=== PATIENT | male | born 1930 | race Caucasian/White ===

== ENCOUNTER 2018-09-09 12:33 | Emergency (ER) | payer MEDICARE ==
[~2018-09-09] VITALS: Ht 182.9 cm; Wt 104.3 kg
[~2018-09-09 12:33] MED LIST: ACET500; ALBU.083IS IH; AMLO10 PO; ATOR40TA PO; AZIT250 PO; Adult Low Dose81 MG PO; BISA10S PR; BUDE.5 NEB; CYCL0.05OP BOTHEYES; DIPH25; DOCU100 PO; FISH1000; GAVILAX17 GM PO; GLIP10; GLIP10 PO; HYDACE5 PO; INSUASPI SC; INSULANI SC; LEVEMIR FL100 UNIT/1 SC; LEVO750 PO; LISI20 PO; METF500; METF500 PO; NITR.4SL SL; Novolog Fl100 UNIT/1 SC; OMEP20ER; RXHYDACE PO; Ultram50 MG PO
[2018-09-09 14:21] LABS: Alanine Aminotransfer (ALT/SGP 23 U/L (12-78); Albumin, Blood 3.4 g/dL (3.4-5.0); Albumin/Globulin Ratio 0.8 (0.8-1.8); Alk Phos 92 U/L (50-136); Anion Gap 7 mmol/L (6-16); Aspartate Aminotrans (AST/SGOT 13 U/L (12-37); Bilirubin, Total 0.8 mg/dL (0.1-1.0); Blood Urea Nitrogen 20 mg/dL (8-24); Bun/Creatinine Ratio 21.9 (12.0-20.0); CO2, Blood 23 mmol/L (21-32); Calcium, Blood 9.1 mg/dL (8.5-10.1); Chloride, Blood 108 mmol/L (98-108); Creatinine, Blood 0.91 mg/dL (0.60-1.20); Globulin, Blood 4.1 g/dL (2.2-4.0); Glomerular Filtration Rate >60 (60-); Glucose, Blood 138 mg/dL (70-99); Potassium, Blood 3.8 mmol/L (3.5-5.5); Sodium, Blood 138 mmol/L (136-145); Total Protein, Blood 7.5 g/dL (6.4-8.2)
[2018-09-09 14:27] LABS: BASOPHILS ABSOLUTE AUTO 0.05 K/mm3 (0.00-0.23); BASOPHILS PERCENT AUTO 1 % (0-2); EOSINOPHILS ABSOLUTE AUTO 0.13 K/mm3 (0.00-0.68); EOSINOPHILS PERCENT AUTO 2 % (0-6); Hematocrit 42.2 % (37.0-53.0); Hemoglobin 14.2 g/dL (13.5-17.5); IMMATURE GRAN ABSOLUTE AUTO 0.02 K/mm3 (0.00-0.10); IMMATURE GRAN PERCENT AUTO 0 % (0-1); LYMPHOCYTES ABSOLUTE AUTO 1.71 K/mm3 (0.84-5.20); LYMPHOCYTES PERCENT AUTO 30 % (21-46); MONOCYTES ABSOLUTE AUTO 0.66 K/mm3 (0.16-1.47); MONOCYTES PERCENT AUTO 12 % (4-13); Mean Corpuscular HGB 29.5 pg (26.0-34.0); Mean Corpuscular HGB Conc 33.6 g/dL (31.5-36.5); Mean Corpuscular Volume 88 fL (80-100); Mean Platelet Volume 9.8 fL (9.1-12.4); NEUTROPHILS ABSOLUTE AUTO 3.08 K/mm3 (1.96-9.15); NEUTROPHILS PERCENT AUTO 54 % (41-73); Platelet Count 200 K/mm3 (150-400); RDW Coefficient Variation 13.9 % (11.7-14.2); RDW Standard Deviation 44.8 fL (35.1-46.3); Red Blood Cell Count 4.81 M/mm3 (4.30-5.90); White Blood Cell Count 5.65 K/mm3 (4.00-11.30)
[2018-09-09 14:29] LABS: Prothrombin Time Results 10.6 Sec (9.7-11.5)
[2018-09-09 14:42] LABS: Source, Urine Catheter
[2018-09-09 14:54] LABS: Bilirubin, Urine Neg (Neg); Blood, Urine 1+ (Neg); Glucose Qualitative, Urine Neg (Neg); Ketones, Urine Neg (Neg); Leukocyte Esterase, Urine 3+ (Neg); Nitrite, Urine Neg (Neg); Protein, Urine Neg (Neg); Specific Gravity, Urine 1.015 (1.003-1.022); Urobilinogen, Urine NORM (Normal); pH, Urine 6.5 (5.0-8.0)
[2018-09-09 15:11] LABS: Appearance, Urine Hazy (Clear); Color, Urine Yellow (P-Yellow)
[2018-09-09 15:12] LABS: Bacteria Many /hpf; Squamous Epithelial Cells Mod /hpf (Few); White Blood Cells, Urine 25-50 /hpf (0-5)
[2018-09-09] MEDS ORDERED: CEFP200 PO (15:33)
== END 2018-09-09 16:32 | disposition home or self-care (01) ==
LOC: ER 12:33
PROVIDERS: Physician Assistant
DX: N39.0 Urinary tract infection, site not specified (principal); E11.9 Type 2 diabetes mellitus without complications; I10 Essential (primary) hypertension; E78.5 Hyperlipidemia, unspecified; I48.91 Unspecified atrial fibrillation; K21.9 Gastro-esophageal reflux disease without esophagitis; Z79.4 Long term (current) use of insulin; Z79.899 Other long term (current) drug therapy; Z87.891 Personal history of nicotine dependence; Z88.0 Allergy status to penicillin; Z88.5 Allergy status to narcotic agent
CPT/HCPCS: 36415; 51701; 70450; 71046; 80053; 81001; 85025; 85610; 85730; 87077; 87086; 87186; 93005; 93010; 99284-25

== ENCOUNTER 2018-10-07 12:37 | Inpatient (IN) | payer MEDICARE ==
[~2018-10-07] VITALS: Ht 182.9 cm; Wt 100.1 kg
[~2018-10-07 12:37] MED LIST changes: +CEFP200 PO
[2018-10-07 13:39] LABS: BASOPHILS ABSOLUTE AUTO 0.02 K/mm3 (0.00-0.23); BASOPHILS PERCENT AUTO 0 % (0-2); EOSINOPHILS ABSOLUTE AUTO 0.01 K/mm3 (0.00-0.68); EOSINOPHILS PERCENT AUTO 0 % (0-6); Hematocrit 45.5 % (37.0-53.0); Hemoglobin 15.6 g/dL (13.5-17.5); IMMATURE GRAN ABSOLUTE AUTO 0.07 K/mm3 (0.00-0.10); IMMATURE GRAN PERCENT AUTO 1 % (0-1); LYMPHOCYTES ABSOLUTE AUTO 1.16 K/mm3 (0.84-5.20); LYMPHOCYTES PERCENT AUTO 11 % (21-46); MONOCYTES ABSOLUTE AUTO 0.96 K/mm3 (0.16-1.47); MONOCYTES PERCENT AUTO 9 % (4-13); Mean Corpuscular HGB 29.6 pg (26.0-34.0); Mean Corpuscular HGB Conc 34.3 g/dL (31.5-36.5); Mean Corpuscular Volume 86 fL (80-100); NEUTROPHILS ABSOLUTE AUTO 8.61 K/mm3 (1.96-9.15); NEUTROPHILS PERCENT AUTO 80 % (41-73); Platelet Count 191 K/mm3 (150-400); RDW Coefficient Variation 13.6 % (11.7-14.2); RDW Standard Deviation 42.7 fL (35.1-46.3); Red Blood Cell Count 5.27 M/mm3 (4.30-5.90); White Blood Cell Count 10.83 K/mm3 (4.00-11.30)
[2018-10-07 13:46] LABS: Alanine Aminotransfer (ALT/SGP 22 U/L (12-78); Albumin, Blood 3.4 g/dL (3.4-5.0); Albumin/Globulin Ratio 0.7 (0.8-1.8); Alk Phos 105 U/L (50-136); Anion Gap 8 mmol/L (6-16); Aspartate Aminotrans (AST/SGOT 16 U/L (12-37); Blood Urea Nitrogen 18 mg/dL (8-24); Bun/Creatinine Ratio 20.9 (12.0-20.0); CO2, Blood 23 mmol/L (21-32); Calcium, Blood 8.7 mg/dL (8.5-10.1); Chloride, Blood 101 mmol/L (98-108); Creatinine, Blood 0.86 mg/dL (0.60-1.20); Globulin, Blood 4.8 g/dL (2.2-4.0); Glomerular Filtration Rate >60 (60-); Glucose, Blood 271 mg/dL (70-99); Potassium, Blood 3.8 mmol/L (3.5-5.5); Sodium, Blood 132 mmol/L (136-145); Total Protein, Blood 8.2 g/dL (6.4-8.2); Troponin I 0.025 ng/mL (0.000-0.040)
[2018-10-07 14:27] LABS: Source, Urine Clean Catch
[2018-10-07 14:55] LABS: Bilirubin, Urine Neg (Neg); Blood, Urine 3+ (Neg); Glucose Qualitative, Urine 4+ (Neg); Ketones, Urine Neg (Neg); Leukocyte Esterase, Urine 2+ (Neg); Nitrite, Urine Neg (Neg); Protein, Urine 2+ (Neg); Urobilinogen, Urine NORM (Normal)
[2018-10-07 15:08] LABS: Appearance, Urine Hazy (Clear); Color, Urine Pale Yellow (P-Yellow)
[2018-10-07 15:09] LABS: Bacteria Many /hpf; Red Blood Cells, Urine 0-2 /hpf (0-2); Squamous Epithelial Cells Few /hpf (Few)
[2018-10-07 16:11] LABS: Adenovirus Not Detected (NOT DETECT); Bordetella pertussis Not Detected (NOT DETECT); Chlamydophila pneumoniae Not Detected (NOT DETECT); Coronavirus 229E Not Detected (NOT DETECT); Coronavirus HKU1 Not Detected (NOT DETECT); Coronavirus NL63 Not Detected (NOT DETECT); Coronavirus OC43 Not Detected (NOT DETECT); Human Metapneumovirus Not Detected (NOT DETECT); Human Rhinovirus/Enterovirus Not Detected (NOT DETECT); Influenza A Not Detected (NOT DETECT); Influenza A/2009-H1 Not Detected (NOT DETECT); Influenza A/H1 Not Detected (NOT DETECT); Influenza A/H3 Not Detected (NOT DETECT); Influenza B Not Detected (NOT DETECT); Mycoplasma pneumoniae Not Detected (NOT DETECT); Parainfluenza Virus 1 Not Detected (NOT DETECT); Parainfluenza Virus 2 Not Detected (NOT DETECT); Parainfluenza Virus 3 Not Detected (NOT DETECT); Parainfluenza Virus 4 Not Detected (NOT DETECT); Respiratory Syncytial Virus Not Detected (NOT DETECT)
[2018-10-07] MEDS ORDERED: Coreg12.5 MG PO (16:21)
[2018-10-07] MEDS ORDERED: Plavix75 MG PO (16:22)
[2018-10-07] MEDS ORDERED: Avodart0.5 MG PO (16:23)
[2018-10-07] MEDS ORDERED: INSULANPEN SC (16:27)
[2018-10-07] MEDS ORDERED: LOSA50 PO (16:28)
[2018-10-07] MEDS ORDERED: Acidophilus La100 GM PO (16:28)
[2018-10-07] MEDS ORDERED: OMEPRAZOLE MAGN20 MG PO (16:30)
[2018-10-07] MEDS ORDERED: TAMS.4ER PO (16:30)
[2018-10-07] MEDS ORDERED: AREDS PO (16:34)
[2018-10-07] MEDS ORDERED: MULTIVITAMIN PO (16:34)
--- NOTE | 2018-10-07 18:37 | NUR ---
ADMIT- PT ARRIVED TO ROOM 353 VIA LAURO FROM ED AT 1740. PT A/O TO PERSON, PLACE, AND YEAR. PT DENIES ANY COMPLAINTS. LS CLEAR, ON 5L N/C, PT DOES NOT USE OXYGEN AT HOME. TELE AFIB AT 95 PER PCU PROGRAM/MUSIC DIRECTOR. REDNESS NOTED TO SACRAL AREA. PT PT AND SPOUSE PT IS A DNR, ADVANCE DIRECTIVE PRINTED AND PLACED IN CHART, SPOKE WITH DR CORRALES AND ORDER CHANGED. SPOUSE REPORTS PT STRAIGH CATH'S AT HOME DUE TO URINARY RETENTION, SHE IS CONCERNED BECAUSE PT HAS HAD NOW 2 UTI'S RECENTLY AND CONCERNED WITH PT STRAIGHT CATHING AND REQUESTING A GUZMÁN CATHETER BE PLACED. PT HAS A UROLOGY APPT IN [place] ON 11/23, THEY REPORT THEY ARE TRYING TO GET A SOON APPT. PT ORIENTED TO ROOM AND CALL SYSTEM, CALL LIGHT IN REACH AND BED ALARM ON.
[2018-10-07 20:07] LABS: Source, Urine Catheter
[2018-10-07 20:23] LABS: Appearance, Urine Hazy (Clear); Bilirubin, Urine Neg (Neg); Blood, Urine 3+ (Neg); Color, Urine Pale Yellow (P-Yellow); Glucose Qualitative, Urine 4+ (Neg); Ketones, Urine Neg (Neg); Leukocyte Esterase, Urine 2+ (Neg); Nitrite, Urine Pos (Neg); Protein, Urine 2+ (Neg); Specific Gravity, Urine 1.015 (1.003-1.022); Urobilinogen, Urine NORM (Normal)
[2018-10-07 20:37] LABS: Red Blood Cells, Urine 0-2 /hpf (0-2); White Blood Cells, Urine 50-100 /hpf (0-5)
[2018-10-07 20:38] LABS: Amorphous Light (0-Heavy); Bacteria Mod /hpf; Squamous Epithelial Cells Few /hpf (Few)
--- NOTE | 2018-10-08 00:01 | NUR ---
2202 PT BECOMING SLIGHTLY AGITATED AND PULLED OUT LEFT SALINE LOCK, ATTEMPTING TO CLIMB OOB, PULLING AT CATHETER/TELEMETRY AND O2. THIS NURSE CALLED VERNA LOVE WITH ORDERS RECEIVED FOR ANDRESSA VEST AND BILATERAL SOFT WRIST RESTRAINTS.
--- NOTE | 2018-10-08 02:04 | NUR ---
0155 PT MANAGED TO REMOVE BILATERAL SOFT WRIST RESTRAINTS, PULLED OFF TELEMETRY AND ATTEMPTING TO CLIMB OOB. THIS NURSE CALLED DR GILLESPIE AND ADVISED OF THE ABOVE WITH ORDERS ANDRESSA VEST AND 4 POINT SOFT RESTRAINTS AND HALDOL 5MG IM. 0200 HALDOL 5MG IM GIVEN.
--- NOTE | 2018-10-08 02:36 | NUR ---
PT VERY AGITATED AND MOVING AROUND IN BED. THIS NURSE CALLED DAUGHTER NEETA AT [phone] AND PROVIDED UPDATE, DAUGHTER INTENDS TO COME IN ADELE. PTS RESTRAINTS REAPPLIED (PT HAD REMOVED LEFT WRIST AND TELEMETRY) WHILE YELLING
--- NOTE | 2018-10-08 03:32 | NUR ---
PTS DAUGHTER NEETA AT SIDE AND PATIENT IS RESTING QUIETLY.
--- NOTE | 2018-10-08 05:51 | NUR ---
SHIFT SUMMARY: 88 Y/O MALE HAD VERY RESTLESS SHIFT WITH PATIENT ATTEMPTING CLIMB OOB, PULLING AT GUZMÁN (DARK RED INTIALLY AFTER PT PULLED ON DEVICE X 1, NOW COLOR IS CLEAR AT END OF THIS SHIFT), TAKING TELEMETRY OFF (A/FIB). PT WAS PLACED IN 4 POINT RESTRAINTS WITH ANDRESSA VEST APPLIED. PTS DAUGHTER NEETA CAME IN AT 0230 AFTER THIS NURSE CALLED HOME AND PROVIDED UPDATE (PATIENTS BEHAVIOR STILL AGITATED AT TIMES WHILE SHE HAS BEEN AT SIDE, HOWEVER; NO FURTHER ISSUES WITH ATTEMPTS TO REMOVE GUZMÁN OR TELEMETRY NOTED. PTS IV R WRIST PATENT, DENIES PAIN OR NAUSEA. PTS BED ALARM APPLIED WITH BED LOW POSITION, CALL LIGHT AT SIDE. PT WEARING O2 AT 5L/M PER NASAL CANNULA (REAPPLIED MULTIPLE TIMES AFTER PATIENT REMOVED). PT WAS GIVEN HALDOL 5MG AT 0200 FOR AGITATION WITH MINIMAL AFFECT NOTED.
--- NOTE | 2018-10-08 08:59 | NUR ---
TELE MONITOR CALLED AND REPORTED PT HR IS 130-140'S AFIB, SCHEDULED COREG GIVEN AND DR ARMENTA CALLED. IV CARDIZEM 10MG GIVEN. PT BACK TO BED AND PLACED ON BEDREST AT THIS TIME. WILL CONT TO MONITOR. PT DENIES ANY CP. PT WITH NOTED SOB.
--- NOTE | 2018-10-08 11:48 | NUR ---
Spiritual care visit conducted. Patient is sleeping when I entered patient's room. I touched patient's shoulder and said his name. Patient awoke and is startled and is unable to hear. I help patient put in his hearing aide in and help orient patient and explain who I am and the purpose for my visit. Patient calms down and explains that some would say that he is not anabaptist but patient assures me that he is a strong believer. He is just not one of those people who runs around talking about it all the time. I provide companionship and prayer and patient thanks me for it. Patient returns to resting.
[2018-10-08 12:08] LABS: BASOPHILS ABSOLUTE AUTO 0.04 K/mm3 (0.00-0.23); BASOPHILS PERCENT AUTO 0 % (0-2); EOSINOPHILS ABSOLUTE AUTO 0.02 K/mm3 (0.00-0.68); EOSINOPHILS PERCENT AUTO 0 % (0-6); Hematocrit 42.6 % (37.0-53.0); Hemoglobin 14.3 g/dL (13.5-17.5); IMMATURE GRAN ABSOLUTE AUTO 0.05 K/mm3 (0.00-0.10); IMMATURE GRAN PERCENT AUTO 1 % (0-1); LYMPHOCYTES ABSOLUTE AUTO 1.06 K/mm3 (0.84-5.20); LYMPHOCYTES PERCENT AUTO 11 % (21-46); MONOCYTES ABSOLUTE AUTO 0.89 K/mm3 (0.16-1.47); MONOCYTES PERCENT AUTO 9 % (4-13); Mean Corpuscular HGB 29.5 pg (26.0-34.0); Mean Corpuscular HGB Conc 33.6 g/dL (31.5-36.5); Mean Corpuscular Volume 88 fL (80-100); Mean Platelet Volume 9.9 fL (9.1-12.4); NEUTROPHILS ABSOLUTE AUTO 7.94 K/mm3 (1.96-9.15); NEUTROPHILS PERCENT AUTO 79 % (41-73); Platelet Count 185 K/mm3 (150-400); RDW Coefficient Variation 13.9 % (11.7-14.2); RDW Standard Deviation 44.7 fL (35.1-46.3); Red Blood Cell Count 4.84 M/mm3 (4.30-5.90)
[2018-10-08 12:23] LABS: Albumin, Blood 2.9 g/dL (3.4-5.0); Anion Gap 6 mmol/L (6-16); Blood Urea Nitrogen 17 mg/dL (8-24); CO2, Blood 24 mmol/L (21-32); Calcium, Blood 8.5 mg/dL (8.5-10.1); Chloride, Blood 105 mmol/L (98-108); Creatinine, Blood 0.89 mg/dL (0.60-1.20); Glomerular Filtration Rate >60 (60-); Glucose, Blood 241 mg/dL (70-99); Magnesium, Blood 1.9 mg/dL (1.6-2.4); Phosphorus, Blood 2.2 mg/dL (2.5-4.9); Potassium, Blood 3.8 mmol/L (3.5-5.5); Sodium, Blood 135 mmol/L (136-145)
--- NOTE | 2018-10-08 13:10 | NUR ---
DR ARMENTA NOTIFIED OF LACTIC ACID DRAW OF 2.4. PER DR ARMENTA CHANGE IVF TO LR AT 100ML/HR. WILL CONT TO MONITOR.
--- NOTE | 2018-10-08 15:00 | NUR ---
ECHO IN PROGRESS.
--- NOTE | 2018-10-08 15:39 | NUR ---
ECHOCARDIOGRAM COMPLETE
--- NOTE | 2018-10-08 17:22 | NUR ---
SHIFT SUMMARY- PT A/O TO PERSON AND FAMILY. PT DENIES ANY COMPLAINTS T/O THE SHIFT. RESTRAINTS DC'D THIS AM. LS CLEAR, ON 5L N/C, OCC NPC, SOB WITH EXERTION. PT WITH AFIB IN THE 140'S THIS AM, IV CARDIZEM GIVEN X1, HR HAS BEEN 80'S-110'S, INCREASES TO 120'S WITH EXERTION, PRN IV METOPROLOL AVAILABLE. LACTIC ACID REMAINS ELEVATED, PT STARTED ON LR AT 100ML/HR. 1 ASSIST WITH FWW UP TO RECLINER. RAMIREZ PATENT AND DRAINING. PT VERY HARD OF HEARING AND NEEDS HIS COCHLEAR IMPLANT, SPOUSE BROUGHT IN PRINT OPERATOR. PT HAS BEEN COOPERATIVE AND PLEASANT WITH CARE, SPOUSE HAS ASSISTED WITH REDIRECTING PT. NO OTHER ACUTE CHANGES THIS SHIFT.
--- NOTE | 2018-10-08 18:09 | NUR ---
Initial Visit: Pt has history of diabetes, HTN, recurrent UTIs, cardiomyopathy, BPH, intersitial lung disease, GERD, cochlear implant, here for afib and pneumonia. Pt is alert, oriented to self, family, situation, place at this time. He converses easily, very pleasant. Pt's and daughter are present, and the is going home to rest. Daughter will be staying for a short while and then will go home. She has told the staff to please call if pt gets out of control during shift coordinator. Fátima, daughter, lives just a couple blocks away from her mother and her father. Pt is explaining to me what his urologist has told him. He is explaining 3 different procedures that he may have to get to resolve his bladder issues. Fátima explains that his bladder does not empty all the way and the urine gets infected. Pt is holding his lower abd and rocking back and forth. He states he is in extreme pain in his penis and bladder area. Reviewed that the pain is likely from him attempting to pull it out last night. Pt is somewhat confabulatory and his daughter at times is making a hand sign every so often, with her index finger circling around her ear; indicating "crazy." She states that he is often confused, especially in the evenings. Updated rTacie on pt's pain level. He does not have any analgesics on his eMAR, so she is going to call the doc and get some Tylenol ordered. Asked Tracie to pass on in report to assess pt's pain often and offer medication. It may help pt rest more comfortably tonight. Will remain available, plan on follow up tomorrow to evaluate pt's night and pain relief.
--- NOTE | 2018-10-08 18:22 | NUR ---
Also recommend adding pyridium. Pt is having recurrent UTIs and urgency issues. Tracie reports that pt is usuallly fixated on draining his bladder at home, as he straight caths and feels urinary urgency.He may benefit from this shelter or can be reevaluated at his urology appointment, but it is not until late October.
--- NOTE | 2018-10-08 19:06 | NUR ---
TITLE I INSTRUCTIONAL ASSISTANT CALLED AND REPORTED PT HR IN THE 120'S, PT ASSISTED BACK INTO BED. HR NOW 110-115'S PER PCU MAT SEWER. NIGHT RN NOTIFIED.
--- NOTE | 2018-10-08 21:00 | NUR ---
PT WATCHING TV WITH LIGHTS ON, FOLLOWING SIMPLE VERBAL COMMANDS, ALERT PERSON ONLY.
--- NOTE | 2018-10-09 04:48 | NUR ---
SHIFT SUMMARY: PT RESTED COMFORTABLY ALL SHIFT WITH NO ATTEMPTS TO CLIMB OOB OR REMOVE ANY HOSPITAL EQUIPMENT (IV, TELEMETRY, GUZMÁN, O2). PT ABLE TO FOLLOW SIMPLE VERBAL COMMANDS, ALERT PERSON ONLY, COCHLEAR IMPLANTS WORN LEFT EAR. PT DENIES PAIN OR NAUSEA. PT ABLE TO REPOSITION SELF IN BED, NO AGITATION NOTED. PTS BED ALARM APPLIED, BED LOW POSITION, CALL LIGHT AT SIDE.
[2018-10-09 05:09] LABS: BASOPHILS ABSOLUTE AUTO 0.05 K/mm3 (0.00-0.23); BASOPHILS PERCENT AUTO 1 % (0-2); EOSINOPHILS ABSOLUTE AUTO 0.06 K/mm3 (0.00-0.68); EOSINOPHILS PERCENT AUTO 1 % (0-6); Hematocrit 38.9 % (37.0-53.0); Hemoglobin 13.2 g/dL (13.5-17.5); IMMATURE GRAN ABSOLUTE AUTO 0.04 K/mm3 (0.00-0.10); IMMATURE GRAN PERCENT AUTO 1 % (0-1); LYMPHOCYTES PERCENT AUTO 15 % (21-46); MONOCYTES ABSOLUTE AUTO 0.78 K/mm3 (0.16-1.47); MONOCYTES PERCENT AUTO 9 % (4-13); Mean Corpuscular HGB 29.3 pg (26.0-34.0); Mean Corpuscular HGB Conc 33.9 g/dL (31.5-36.5); Mean Corpuscular Volume 86 fL (80-100); Mean Platelet Volume 9.9 fL (9.1-12.4); NEUTROPHILS ABSOLUTE AUTO 6.63 K/mm3 (1.96-9.15); NEUTROPHILS PERCENT AUTO 75 % (41-73); Platelet Count 173 K/mm3 (150-400); RDW Coefficient Variation 13.7 % (11.7-14.2); RDW Standard Deviation 43.2 fL (35.1-46.3); White Blood Cell Count 8.86 K/mm3 (4.00-11.30)
[2018-10-09 05:23] LABS: Albumin, Blood 2.7 g/dL (3.4-5.0); Anion Gap 9 mmol/L (6-16); Blood Urea Nitrogen 17 mg/dL (8-24); CO2, Blood 22 mmol/L (21-32); Calcium, Blood 8.2 mg/dL (8.5-10.1); Chloride, Blood 108 mmol/L (98-108); Creatinine, Blood 0.77 mg/dL (0.60-1.20); Glomerular Filtration Rate >60 (60-); Glucose, Blood 142 mg/dL (70-99); Phosphorus, Blood 1.8 mg/dL (2.5-4.9); Potassium, Blood 3.2 mmol/L (3.5-5.5); Sodium, Blood 139 mmol/L (136-145)
--- NOTE | 2018-10-09 17:05 | NUR ---
Clinical Visit: Pt seen earlier, late entry. Pt is really working to breath and is trying to get out of bed. He is pleasant, but seems very agitated. He reports his chest feels heavy. Easily redirectable, but he has asked to see and talk to his . Call placed to her. She reports that she had just left there, that he is very persistent in wanting to talk to her. She reports that she doesn't want to leave the house due to construction. He accepts that, but also says that 'it is illegal for them to block her in, but that 's okay.' Pt wanting to sit up, and he is having difficulty breathing. Assisted to dangling position. He reports that this makes him feel very dizzy and assisted to lay back down. Joie is giving pt tylenol and pyridium. Reported what happened with his dangle to her. She is calling Elias Borges Urzeda, heart rate 105. Reported that laboratory clerk was in the room to draw d-dimer.
--- NOTE | 2018-10-09 17:37 | NUR ---
SHIFT SUMMARY- PT ALERT AND ORIENTED BUT FORGETFUL. PT IS EXTREMELY [place] AND HAS SEVERE MACULAR DEGENERATION SO CAN NOT SEE WELL AT ALL. PT FREQUENTLY DOES NOT RECOGNIZE PEOPLE BUT THIS IS LIKELY D/T HEARING AND VISION DEFFICITS RATHER THAN COGNITION. PT SPOUSE HAS BEEN AT THE BEDSIDE OFF AND ON THROUGH OUT THE SHIFT. PT BNP WAS ELEVATED MEDICATED WITH 20MG IV LASIX OT. PT RESP RATE SEEMS LESS LABORED, HR DROPPED ON TELE INTO THE 80'S WHILE AT REST, LOWEST IT HAS BEEN SINCE ADMIT. PT D-DIMER ELEVATED 1.88 CT CHEST ORDERED TO R/O PE. PT SPOUSE IS AT THE BEDSIDE CURRENTLY. PT POTASSIUM 3.2 MEDICATED WITH PO POTASSIUM AND IV POTASSIUM PHOSPHATE. SHOULD BE COMPLETED AT THE END OF THE SHIFT, PT IV'S WILL BE SL AT THAT TIME.
--- NOTE | 2018-10-09 19:58 | NUR ---
PT ATTEMPTING CLIMB OOB AND UNABLE TO FOLLOW ANY REDIRECTION, PULLED AT GUZMÁN X 1. PT ASSISTED BACK INTO BED. DR GILLESPIE NOTIFIED WITH ORDERS FOR ANDRESSA VEST AND 4 POINT RESTRAINTS, ATIVAN 0.5MG IVP X 1. PT PLACED IN 4 POINT WITH 4 ASSIST (SECURITY CALLED). CHARGE NURSE, CONOR GILL NOTIFIEJD
--- NOTE | 2018-10-09 23:33 | NUR ---
PT HAVING INCREASED AGITATION AND ATTEMPTING CLIMB OOB WHILE YELLING OUT LOUDLY AND CURSING AT STAFF AND DAUGHTER CANDI (AT SIDE). THIS NURSE CALLED DR GILLESPIE WITH ORDERS FOR ZYPREXA 10MG IM NOW.
--- NOTE | 2018-10-10 00:45 | NUR ---
0032 PTS HEART RATE 130 PER YARD CRANE OPERATOR MARIANA GARCIA 5MG IVP GIVEN
--- NOTE | 2018-10-10 01:59 | NUR ---
PT HEART RATE 115 PER EVALUATION SPECIALIST RADHA.
--- NOTE | 2018-10-10 03:56 | NUR ---
SHIFT SUMMARY: 88 Y/O MALE HAD VERY RESTLESS NIGHT SINCE BEGINNING OF SHIFT WITH BILATERAL SOFT WRIST/ANKLE AND ANDRESSA VEST RESTRAINTS APPLIED AFTER PATIENT ATTEMPTED TO REMOVE GUZMÁN, TELEMETRY, IV. PT WAS GIVEN ATIVAN 0.5MG AT BEGINNING OF SHIFT FOR AGITATION WITH MINIMAL AFFECT AND ZYPREXA 10MG IM AT 2345. PT HAD EPISODE TACHYCARDIA OF 130 AT 0032 WITH LOPRESSOR 5MG IVP GIVEN WITH HEART RATE DECREASING DOWN TO 115. PTS DAUGHTER NEETA AT SIDE ALL NIGHT. TELEMETRY REFLECTS A/FIB. PT APPEARS TO HAVE NO PAIN. PTS BED ALARM APPLIED, BED LOW POSITION, CALL LIGHT AT SIDE.
[2018-10-10 06:41] LABS: BASOPHILS ABSOLUTE AUTO 0.04 K/mm3 (0.00-0.23); BASOPHILS PERCENT AUTO 0 % (0-2); EOSINOPHILS ABSOLUTE AUTO 0.05 K/mm3 (0.00-0.68); EOSINOPHILS PERCENT AUTO 1 % (0-6); Hematocrit 40.8 % (37.0-53.0); Hemoglobin 13.8 g/dL (13.5-17.5); IMMATURE GRAN ABSOLUTE AUTO 0.06 K/mm3 (0.00-0.10); IMMATURE GRAN PERCENT AUTO 1 % (0-1); LYMPHOCYTES ABSOLUTE AUTO 1.45 K/mm3 (0.84-5.20); LYMPHOCYTES PERCENT AUTO 16 % (21-46); MONOCYTES ABSOLUTE AUTO 0.67 K/mm3 (0.16-1.47); MONOCYTES PERCENT AUTO 8 % (4-13); Mean Corpuscular HGB 29.3 pg (26.0-34.0); Mean Corpuscular HGB Conc 33.8 g/dL (31.5-36.5); Mean Corpuscular Volume 87 fL (80-100); Mean Platelet Volume 9.4 fL (9.1-12.4); NEUTROPHILS ABSOLUTE AUTO 6.72 K/mm3 (1.96-9.15); NEUTROPHILS PERCENT AUTO 75 % (41-73); Platelet Count 203 K/mm3 (150-400); RDW Coefficient Variation 14.1 % (11.7-14.2); RDW Standard Deviation 43.8 fL (35.1-46.3); Red Blood Cell Count 4.71 M/mm3 (4.30-5.90); White Blood Cell Count 8.99 K/mm3 (4.00-11.30)
[2018-10-10 06:57] LABS: Albumin, Blood 2.9 g/dL (3.4-5.0); Anion Gap 7 mmol/L (6-16); Blood Urea Nitrogen 19 mg/dL (8-24); CO2, Blood 27 mmol/L (21-32); Calcium, Blood 8.8 mg/dL (8.5-10.1); Chloride, Blood 107 mmol/L (98-108); Creatinine, Blood 0.86 mg/dL (0.60-1.20); Glomerular Filtration Rate >60 (60-); Glucose, Blood 176 mg/dL (70-99); Potassium, Blood 4.2 mmol/L (3.5-5.5); Sodium, Blood 141 mmol/L (136-145)
--- NOTE | 2018-10-10 07:30 | NUR ---
ASSUMED CARE OF PT- PT COMPLETELY CONFUSED TO PERSON, PLACE AND TIME; HAVING HALLUCINATIONS, IN 4 POINT RESTRAINT WHICH PER REPORT FROM NIGHT RN PT WAS ABLE TO REMOVE TWICE LAST NIGHT. PT WAS MEDICATED T/O THE NIGHT WITH ATIVAN AND ZYPREXA PER REPORT. PT HAS REMOVED THE TELE MULTIPLE TIMES, MEDICATED LAST NIGHT WITH PRN METOPROLOL IV ONCE FOR HR 130. PT HAS A VEWS SCORE OF 4 WITH MORNING VITALS D/T DEVYN HR OF 114 PER TELE AND RESP RATE OF 24. O2 SATS ARE 92 PERCENT ON 15L O2 VIA DEVYN FLOW NC. SPOKE TO RT AT THIS POINT THERE IS NOTHING MORE THAT CAN BE DONE TO AID IN BREATHING. RECIEVED A CALL FROM TELE, PT HAD A 6 BEAT RUN OF V-TAC. WILL CALL DR ARMENTA TO UPDATE HER.
--- NOTE | 2018-10-10 07:41 | NUR ---
CALLED DR ARMENTA- LEFT A MESSAGE ABOUT 6 BEAT RUN OF V-TAC. AWAITING RETURN CALL.
[2018-10-10 09:38] LABS: PCO2 Arterial 30.2 mmHg (35-45); PO2 Arterial 72.6 mmHg (80-100); pH Blood Arterial 7.48 (7.35-7.45)
--- NOTE | 2018-10-10 11:10 | NUR ---
Review of pt with nursing and hospitalist. Met with pt and briefly for [id number] vist. We have spoken before about his care. they are still in their home, she still tries to take him for drives. appears more faril since last visit and repeats herself. Physician will review diagnostics and review plan of care so they can proceed. will contact daughter for assistance in plan of care. [facility] has been involved with [facility] patient will update them on friday.
--- NOTE | 2018-10-10 19:57 | NUR ---
SHIFT SUMMARY- PT RECIEVED IV HALDOL THIS AFTERNOON, AFTER THAT PT SLEPT SOLID FOR APPROXIMATELY 4 HOURS, HE WOKE PRIOR TO CHANGE OF SHIFT AND RECIEVED HIS CARVIDILOL. PT ALERT AND ORIENTED X3 AT THIS TIME, BEDSIDE REPORT COMPLETED WITH NIGHT RN ILEANA. PT SPOUSE AND DAUGHTER AT THE BEDSIDE, PT STILL IN RESTRAINTS AT THIS TIME.
--- NOTE | 2018-10-10 20:47 | NUR ---
10/10/181949 ATTEMPTED TO RENEW RESTRAINT ORDER. NO CALL BACK.
--- NOTE | 2018-10-10 20:48 | NUR ---
10/10/18 2030 REATTEMPED TO GET RESTRAINT ORDER. PAGED TWICE.
--- NOTE | 2018-10-11 00:08 | NUR ---
10/11/18 2345 PT WAS SLEEPING AND AWAKENED FOR IV MED ADMINISTRATION AND TO REPOSITION TO LEFT SIDE WITH PILLOWS. PT BECAME IRRITABLE AND STATES HE NEEDS "TO PEE". INFORMED HIM ABOUT THE GUZMÁN AND TO JUST URINATE BUT IS PULLING AT RESTRAINTS AND PULLED OFF HEART MONITOR. GUZMÁN DRAINING WELL CLEAR YELLOW URINE.
--- NOTE | 2018-10-11 07:25 | NUR ---
10/11/18 0630 AWAKENED FOR AM MED. DENIES ANY PAIN OR S/S. VITALS STABLE. RESTRAINTS ON ALL NIGHT WITH PROTOCOL FOLLOW FOR RELEASE DURING ROUNDS. PT STILL A HIGH FALL RISK AND POTENTIAL FOR SELF/STAFF HARM. GUZMÁN PATENT. HEART MONITOR STABLE AT ATRIAL FIB IN THE 70'S.
--- NOTE | 2018-10-11 07:34 | NUR ---
ASSUMED CARE OF PT- RECIEVED REPORT FROM NIGHT RN ILEANA. PT MEDICATED AROUND MIDNIGHT WITH HALDOL, PER REPORT MED DIDN'T TAKE EFFECT UNTIL ABOUT 2 HOURS LATER. PT CURRENTLY SLEEPING SOUNDLY HR ON TELE SPIKED TO 120'S WHEN STAFF REPOSITIONED THE PT THEN SETTLED BACK TO A FIB AT 106 PER TELE. PT REPOSITIONED HIMSELF BACK TO HIS PREVIOUS POSITION. NO S&S OF DISTRESS NOTED AT THIS TIME, PT ON 15L HIGH FLOW NC, SATTING 93%. HIGHER THAN PREVIOUS O2 SATS. RESP E/U.
[2018-10-11 09:26] LABS: BASOPHILS ABSOLUTE AUTO 0.07 K/mm3 (0.00-0.23); BASOPHILS PERCENT AUTO 1 % (0-2); EOSINOPHILS ABSOLUTE AUTO 0.23 K/mm3 (0.00-0.68); EOSINOPHILS PERCENT AUTO 3 % (0-6); Hemoglobin 13.1 g/dL (13.5-17.5); IMMATURE GRAN ABSOLUTE AUTO 0.03 K/mm3 (0.00-0.10); IMMATURE GRAN PERCENT AUTO 0 % (0-1); LYMPHOCYTES ABSOLUTE AUTO 1.11 K/mm3 (0.84-5.20); LYMPHOCYTES PERCENT AUTO 14 % (21-46); MONOCYTES PERCENT AUTO 9 % (4-13); Mean Corpuscular HGB 29.3 pg (26.0-34.0); Mean Corpuscular HGB Conc 33.6 g/dL (31.5-36.5); Mean Corpuscular Volume 87 fL (80-100); Mean Platelet Volume 9.5 fL (9.1-12.4); NEUTROPHILS PERCENT AUTO 73 % (41-73); Platelet Count 216 K/mm3 (150-400); RDW Coefficient Variation 14.3 % (11.7-14.2); RDW Standard Deviation 45.4 fL (35.1-46.3); Red Blood Cell Count 4.47 M/mm3 (4.30-5.90); White Blood Cell Count 7.84 K/mm3 (4.00-11.30)
[2018-10-11 09:52] LABS: Albumin, Blood 2.5 g/dL (3.4-5.0); Anion Gap 8 mmol/L (6-16); Blood Urea Nitrogen 15 mg/dL (8-24); Bun/Creatinine Ratio 19.6 (12.0-20.0); CO2, Blood 24 mmol/L (21-32); Calcium, Blood 8.1 mg/dL (8.5-10.1); Chloride, Blood 110 mmol/L (98-108); Creatinine, Blood 0.77 mg/dL (0.60-1.20); Glomerular Filtration Rate >60 (60-); Glucose, Blood 125 mg/dL (70-99); Phosphorus, Blood 3.1 mg/dL (2.5-4.9); Potassium, Blood 3.5 mmol/L (3.5-5.5); Sodium, Blood 142 mmol/L (136-145)
--- NOTE | 2018-10-11 11:26 | NUR ---
Review of patient with nursing. States mor alert today. Will speak with daughter when she comes in. Pt has strong rapport with patients nurse manager rn case at [facility] will contact her on friday to help with understanding and acceptance.
--- NOTE | 2018-10-11 15:08 | NUR ---
Met with daughter today. Patients went home to rest. Daughter relays that after conversation with doctor Grande they had extensive conversation about hospice care. They are more concerned about suffering at this point. They want to see if he can transfer to [place] for care. They have a strong relationship with [facility] caregivers for the patient. The daughter retired from [employer]. Brief review of hospice. Daughter states they want him home but when reviewing cargiving may be a difficult option. Advised them friday staff will assist with options and plan.
--- NOTE | 2018-10-11 17:51 | NUR ---
CALLED DR ARMENTA- PT C/O SHOULDER PAIN. RECIEVED ORDER FOR K-PAD FOR HEAT THERAPY.
--- NOTE | 2018-10-12 06:52 | NUR ---
10/12/18 0630 PORTABLE CHEST X-RAY TECH HERE FOR EX-RAY. PT AWAKENED. PT SLIGHTLY CONFUSED THIS AM TO PLACE,TIME AND EVENT. RESTRAINTS HAVE BEEN OFF AND PT HAS BEEN VERY COOPERATIVE WITH CARE. VITALS STABLE. GUZMÁN CATHETER PATENT AND DRAINING WELL.
[2018-10-12 07:26] LABS: BASOPHILS ABSOLUTE AUTO 0.05 K/mm3 (0.00-0.23); BASOPHILS PERCENT AUTO 1 % (0-2); EOSINOPHILS ABSOLUTE AUTO 0.14 K/mm3 (0.00-0.68); EOSINOPHILS PERCENT AUTO 2 % (0-6); Hematocrit 40.3 % (37.0-53.0); Hemoglobin 13.2 g/dL (13.5-17.5); IMMATURE GRAN ABSOLUTE AUTO 0.03 K/mm3 (0.00-0.10); IMMATURE GRAN PERCENT AUTO 0 % (0-1); LYMPHOCYTES ABSOLUTE AUTO 1.22 K/mm3 (0.84-5.20); LYMPHOCYTES PERCENT AUTO 16 % (21-46); MONOCYTES ABSOLUTE AUTO 0.72 K/mm3 (0.16-1.47); MONOCYTES PERCENT AUTO 9 % (4-13); Mean Corpuscular HGB 28.9 pg (26.0-34.0); Mean Corpuscular HGB Conc 32.8 g/dL (31.5-36.5); Mean Corpuscular Volume 88 fL (80-100); Mean Platelet Volume 9.4 fL (9.1-12.4); NEUTROPHILS ABSOLUTE AUTO 5.64 K/mm3 (1.96-9.15); NEUTROPHILS PERCENT AUTO 72 % (41-73); Platelet Count 220 K/mm3 (150-400); RDW Coefficient Variation 14.4 % (11.7-14.2); RDW Standard Deviation 45.9 fL (35.1-46.3); Red Blood Cell Count 4.57 M/mm3 (4.30-5.90)
[2018-10-12 07:37] LABS: Albumin, Blood 2.5 g/dL (3.4-5.0); Anion Gap 6 mmol/L (6-16); Blood Urea Nitrogen 18 mg/dL (8-24); Bun/Creatinine Ratio 20.7 (12.0-20.0); CO2, Blood 26 mmol/L (21-32); Chloride, Blood 108 mmol/L (98-108); Creatinine, Blood 0.87 mg/dL (0.60-1.20); Glomerular Filtration Rate >60 (60-); Glucose, Blood 132 mg/dL (70-99); Phosphorus, Blood 3.1 mg/dL (2.5-4.9); Potassium, Blood 3.8 mmol/L (3.5-5.5); Sodium, Blood 140 mmol/L (136-145)
[2018-10-12 15:27] LABS: Vancomycin, Trough 6.6 ug/mL (5.0-10.0)
--- NOTE | 2018-10-12 15:41 | NUR ---
[facility] inital visit: Met with and dtr at bedside. Both were very talkative and receptive to emotional support/admissions counselor. states she can no longer care for pt at home. She explained how difficult it has been to see him decline. Pt's spouse and dtr both state they are hoping for [facility] placement on hospice. "He has suffered long enough." Family told me numerous stories from pt's life--from childhood to current. They responded well to affirmation, anticipatory bereavement admissions counselor, and theraputic listening. I will remain available.
--- NOTE | 2018-10-12 16:03 | NUR ---
Brief visit with . she is quiet today and tearful. We reviewed hospice and that the plans are in motion she is hoping for VA placement. she is focused on how restless he is today and getting him out of hospital. She is repetative and sense conversation is hard for her today. Update post acute care nurse practitioner and they will speak with her about a plan. [facility] nurse called today because daughter called them. will update them on plan. pt resting breathing even no grimace or guarding noted.
--- NOTE | 2018-10-13 02:51 | NUR ---
10/13/18 0250 CONTINUES TO SLEEP WELL THIS NIGHT. AWAKENED AROUND MIDNIGHT FOR IV MED AND VITALS REASSESSMENT. COOPERATIVE AND DENIES ANY DISCOMFORT OR PROBLEMS. REPOSITIONS SELF IN BED. BED ALARM ON.
--- NOTE | 2018-10-13 07:21 | NUR ---
10/13/18 0600 WATCHING TV WITHOUT ANY C/O DISCOMFORT. GUZMÁN PATENT AND DRAINING WELL CLEAR ORANGE URINE. UNEVENTFUL NIGHT. O2 AT 7 LPM HIGH FLOW WITH O2 SATS 91-94%.
--- NOTE | 2018-10-13 08:33 | NUR ---
ALERT AND ORIENTED. KNOWS DATE AND WHERE HE IS. DENIES ANY PAIN; ALTHOUGH, HE STS "HAS NOT HAD ANY PAIN SINCE BEEN HERE." HE HAS C/O PAIN TO OTHER STAFF ON OTHER DAYS. PLEASANT. COOPERATIVE. NO COUGHING. UNLABORED RESPIRATIONS ON 7 LPM HUMIDIFIED HIGH FLOW OXYGEN. TELE ON AND SHOWS AFIB UNDER 100. WCTM.
--- NOTE | 2018-10-13 16:59 | NUR ---
ALERT. ORIENTED AT TIMES. COOPERATIVE. PLEASANT. IV'S PATENT. TELE ON. DENIES ANY PAIN TODAY. OXYGEN HUMIDIFIED HIGH FLOW AT 6-7 LPM. ONE PERSON ASSIST TO STAND PIVOT TO CHAIR. PER PCU TECH AVERAGE HEART RATE BETWEEN 100-130. WCTM.
--- NOTE | 2018-10-14 03:56 | NUR ---
SHIFT SUMMARY PT BECAME VERY SUSPICIOUS OF STAFF AROUND 2200 AFTER FAMILY LEFT. PT REFUSED TO TAKE EVENING LANTUS AND LACTOBACILLUS DESPITE REPEATED RN EDUCATION. PT KEPT RN IN THE ROOM UNTIL HIS DAUGHTER AND ARRIVED. FAMILY HELPED TO CALM PT DOWN AND REORIENT. HALDOL WAS GIVEN TO PT PER MAY. METOPROLOL WAS ALSO GIVEN DUR TO PT HAVING SUSTAINED TACHYCARDIA. PT THEN FELL ASLEEP. AROUND 0300 PT BECAME A LITTLE MORE ORIENTED AND ALLOWED STAFF TO ATTEND TO HIS NEEDS. NO OTHER EVENTS OCCURRED DURING THE SHIFT. PT SAFETY MAINTAINED. WILL CONTINUE TO MONITOR.
[2018-10-14] MEDS ORDERED: ALBU2.5V5 INH (09:44)
[2018-10-14] MEDS ORDERED: XARELTO20 MG PO (09:45)
--- NOTE | 2018-10-14 11:14 | NUR ---
REVIEW EXTENSIVELY D'C INSTRUCTIONS W/SPOUSE. AWARE HOSPICE WILL SEE THEM TOMORROW. ADVISED TO WRITE DOWN ANY QUESTIONS FOR THEM. [facility] AT PICKUP WINDOW.
== END 2018-10-14 11:42 | disposition hospice, home (50) | DRG 698 ==
LOC: ER 12:37 → MEDS 15:27 → ENPENDDIS 10-14 10:55 → MEDS 10-14 11:42
PROVIDERS: Emergency Medicine; Family Medicine; Internal Medicine Critical Care Medicine; ADMIT Internal Medicine
DX: T83.511A Infection and inflammatory reaction due to indwelling urethral catheter, initial encounter (principal); A41.51 Sepsis due to Escherichia coli [E. coli]; J18.9 Pneumonia, unspecified organism; I26.99 Other pulmonary embolism without acute cor pulmonale; J96.21 Acute and chronic respiratory failure with hypoxia; R65.20 Severe sepsis without septic shock; I42.1 Obstructive hypertrophic cardiomyopathy; R41.0 Disorientation, unspecified; I48.91 Unspecified atrial fibrillation; K21.9 Gastro-esophageal reflux disease without esophagitis; N40.0 Benign prostatic hyperplasia without lower urinary tract symptoms; I10 Essential (primary) hypertension; H35.30 Unspecified macular degeneration; H91.90 Unspecified hearing loss, unspecified ear; E11.9 Type 2 diabetes mellitus without complications; N39.0 Urinary tract infection, site not specified; Z51.5 Encounter for palliative care; Z95.5 Presence of coronary angioplasty implant and graft; Z88.6 Allergy status to analgesic agent; Z88.5 Allergy status to narcotic agent; Z88.0 Allergy status to penicillin; Z87.891 Personal history of nicotine dependence; Z79.84 Long term (current) use of oral hypoglycemic drugs; Z79.02 Long term (current) use of antithrombotics/antiplatelets; Z79.4 Long term (current) use of insulin; Z79.899 Other long term (current) drug therapy; Z78.1 Physical restraint status
CPT/HCPCS: 36415; 36600; 71045; 71046; 71260; 80053; 80069; 80202; 81001; 82803; 82947; 83605; 83735; 83880; 84484; 85025; 85379; 87040; 87077; 87086; 87186; 87486; 87581; 87633; 87798; 92610; 93005; 93010; 93306; 94640; 94760; 96365; 96375; 97162; 97166; 97530; 97535; 98960; 99285-25; A9270; J0456; J0692; J0696; J1630; J1650; J1940; J2060; J3370; J7030; J7050; J7060; J7120; Q9967

== ENCOUNTER 2019-01-18 06:56 | Inpatient (IN) | payer MEDICARE ==
[~2019-01-18] VITALS: Ht 177.8 cm; Wt 94.6 kg
[~2019-01-18 06:56] MED LIST changes: +ALBU2.5V5 INH; +AREDS PO; +Acidophilus La100 GM PO; +Avodart0.5 MG PO; +Coreg12.5 MG PO; +INSULANPEN SC; +LOSA50 PO; +MULTIVITAMIN PO; +OMEPRAZOLE MAGN20 MG PO; +Plavix75 MG PO; +TAMS.4ER PO; +XARELTO20 MG PO
[2019-01-18 07:57] LABS: Source, Urine Catheter
[2019-01-18 08:08] LABS: Bilirubin, Urine Neg (Neg); Blood, Urine 4+ (Neg); Glucose Qualitative, Urine Neg (Neg); Ketones, Urine Neg (Neg); Leukocyte Esterase, Urine 1+ (Neg); Nitrite, Urine Neg (Neg); Protein, Urine 2+ (Neg); Urobilinogen, Urine NORM (Normal)
[2019-01-18 08:12] LABS: BASOPHILS ABSOLUTE AUTO 0.04 K/mm3 (0.00-0.23); BASOPHILS PERCENT AUTO 0 % (0-2); EOSINOPHILS ABSOLUTE AUTO 0.03 K/mm3 (0.00-0.68); EOSINOPHILS PERCENT AUTO 0 % (0-6); Hematocrit 43.5 % (37.0-53.0); Hemoglobin 14.6 g/dL (13.5-17.5); IMMATURE GRAN ABSOLUTE AUTO 0.04 K/mm3 (0.00-0.10); IMMATURE GRAN PERCENT AUTO 0 % (0-1); LYMPHOCYTES ABSOLUTE AUTO 0.59 K/mm3 (0.84-5.20); LYMPHOCYTES PERCENT AUTO 6 % (21-46); MONOCYTES ABSOLUTE AUTO 0.13 K/mm3 (0.16-1.47); MONOCYTES PERCENT AUTO 1 % (4-13); Mean Corpuscular HGB 29.8 pg (26.0-34.0); Mean Corpuscular HGB Conc 33.6 g/dL (31.5-36.5); Mean Corpuscular Volume 89 fL (80-100); Mean Platelet Volume 10.2 fL (9.1-12.4); NEUTROPHILS ABSOLUTE AUTO 8.85 K/mm3 (1.96-9.15); NEUTROPHILS PERCENT AUTO 92 % (41-73); Platelet Count 143 K/mm3 (150-400); RDW Coefficient Variation 14.5 % (11.7-14.2); RDW Standard Deviation 46.7 fL (35.1-46.3); White Blood Cell Count 9.68 K/mm3 (4.00-11.30)
[2019-01-18 08:14] LABS: Appearance, Urine Clear (Clear); Color, Urine Yellow (P-Yellow)
[2019-01-18 08:17] LABS: Bacteria Many /hpf; Squamous Epithelial Cells Rare /hpf (Few)
[2019-01-18 08:22] LABS: International Normalized Ratio 1.2; Prothrombin Time Results 12.5 Sec (9.7-11.5)
[2019-01-18 08:30] LABS: Alanine Aminotransfer (ALT/SGP 20 U/L (12-78); Albumin, Blood 3.1 g/dL (3.4-5.0); Albumin/Globulin Ratio 0.8 (0.8-1.8); Alk Phos 79 U/L (50-136); Anion Gap 10 mmol/L (6-16); Aspartate Aminotrans (AST/SGOT 15 U/L (12-37); Bilirubin, Total 1.8 mg/dL (0.1-1.0); Blood Urea Nitrogen 16 mg/dL (8-24); Bun/Creatinine Ratio 18.5 (12.0-20.0); CO2, Blood 21 mmol/L (21-32); Calcium, Blood 8.8 mg/dL (8.5-10.1); Chloride, Blood 108 mmol/L (98-108); Creatinine, Blood 0.86 mg/dL (0.60-1.20); Glomerular Filtration Rate >60 (60-); Glucose, Blood 190 mg/dL (70-99); Potassium, Blood 3.7 mmol/L (3.5-5.5); Sodium, Blood 139 mmol/L (136-145); Total Protein, Blood 7.1 g/dL (6.4-8.2)
--- NOTE | 2019-01-18 11:03 | NUR ---
Pt is oriented to self. He has knowledge that he is in a hospital and knows there are doctors and nurses around. He states that he is "falling apart" and needs a doctor. He denies pain, very hard of hearing; cochlear implant in right ear, [place] SAL[place] in left. Pt has significant dementia impairments. Pt's hospice nurse, Magalis, is present. She states that pt's is unlikely to truly understand goals of hospice care. has called an ambulance X2 in the recent weeks including today. She is not calling hospice before sending him to the ER. She is calling to confirm revoking hospice in favor of having pt treated at the hospital. She states also, that pt may be difficult for to care for at home due to dementia symptoms, frequent self cath, and severe sun downing. Magalis states that UA was performed and the antibiotic that was appropriate to give him is IV and was not able to be treated in hospice care. Pt is known to palliative care. He was placed on hospice and sent home in September of this year.Will follow up with pt and family if he is admitted, which seems likely.
[2019-01-18] MEDS ORDERED: LORA1 PO (13:34)
[2019-01-18] MEDS ORDERED: ACET500 PO (13:34)
--- NOTE | 2019-01-18 14:00 | NUR ---
HEART RATE/CARDIZEM PT ARRIVED TO ROOM 331 VIA GURNEY FROM ED. PT DID NOT RECEIVE CARDIZEM WHILE IN ED. THIS RN CALLED DR. NEAL AND NOTIFIED HER THAT THE MEDICATION WAS NOT GIVEN AND THAT PT WOULD NEED TO BE ON A TELE FOR THE MEDICATION TO BE GIVEN ON THE FLOOR. THIS RN ALSO DISCUSSED WHAT THE LAST HEART RATE RECORDED IN ED WAS AND THAT OUR MONITOR SHOWED HR IN 70'S BUT WHEN LISTENED TO, IT SEEMED MUCH FASTER AND WAS UNABLE TO COUNT DUE TO IRREGULAR HEART BEAT. DR. NEAL ORDERED TO HOLD CARDIZEM AT THIS TIME. THIS RN ALSO NOTIFIED HER THAT PT'S REPORTS THAT PT IS NOT TAKING ANY OF THE MEDICATIONS LISTED ON MED LIST EXCEPT XARELTO, PRILOSEC, AND TYLENOL. NO ORDER FOR TELE AT THIS TIME. WILL CONTINUE TO MONITOR PT. CALL LIGHT IN REACH.
--- NOTE | 2019-01-18 17:30 | NUR ---
SHIFT SUMMARY PT WAS A NEW ADMISSION THIS AFTERNOON FROM ED. PT IS ALERT AND ORIENTED TO PLACE, FAMILY, AND REASON FOR ADMISSION. C/O PAIN IN LEFT HIP. MEDICATED FOR PAIN EARLIER WITH TYLENOL AND STAFF HAS BEEN ALTERNATING ICE AND HEAT TO LEFT HIP. NO ACUTE CHANGES AT THIS TIME. CALL LIGHT IN REACH. WILL CONTINUE TO MONITOR AND REPORT TO ONCOMING RN. BED ALARM ON FOR SAFETY.
[2019-01-18] MEDS ORDERED: LIDO700A20 TOP (22:42)
--- NOTE | 2019-01-18 23:16 | NUR ---
Patient is confused, can't see or hear well. Kind and happy lashonda, but daughter warned that he may get mad/upset if he feels tied to the bed with the SCD's. Pt keeps saying he has to use the bathroom but he was straight cathed by RN. I have been in and out of the room at least 10 times tonight...pt just used bedside comode with 125output but had wet brief. I will chart in IO's.
[2019-01-19] MEDS ORDERED: ALBU3IS (04:30)
[2019-01-19] MEDS ORDERED: CARV6.25 PO (04:31)
[2019-01-19] MEDS ORDERED: CLOP75 PO (04:32)
[2019-01-19] MEDS ORDERED: DUTA.5 PO (04:32)
[2019-01-19] MEDS ORDERED: LOSA50 PO (04:33)
[2019-01-19] MEDS ORDERED: OMEPRAZOLE20 MG PO (04:34)
[2019-01-19] MEDS ORDERED: TAMS.4ER PO (04:35)
[2019-01-19] MEDS ORDERED: BASAGLAR K100 UNIT/1 (04:37)
--- NOTE | 2019-01-19 06:19 | NUR ---
SHIFT SUMMARY PATIENT RESTLESS ALL NIGHT. STRAIGHT CATH PERFORMED AT 2200 AND 0600. PATIENT UP TO BSC WITH SBA MULTIPLE TIMES EACH HOUR. PATIENT VERY NEWHALEN AND UNABLE TO SEE. PATIENT FEBRILE AND TACHYCARDIC. SPOKE WITH WOOD TREATING INSPECTOR PHYSICIAN THAT ORDERED 500ML BOLUS AND TYLENOL GIVEN. WILL CONTINUE TO MONITOR AND REPORT TO ON COMING NURSE
--- NOTE | 2019-01-19 18:40 | NUR ---
SHIFT SUMMARY NO ACUTE CHANGES THIS SHIFT. STRAIGT CATH EVERY 6 HOURS PER ORDERS. PT CONFUSED AT TIMES BUT ALWAYS COOPERATIVE WITH CARE. NO COMPLAINTS OF PAIN THIS SHIFT. PT UP WITH ASSIST AND FWW TO BATHROOM. PT HAS GOOD APPETITE. WILL CONTINUE TO MONITOR AND REPORT TO ONCOMING RN. BED ALARM ON FOR SAFETY.
--- NOTE | 2019-01-19 21:34 | NUR ---
CALLED TO PATIENTS ROOM AT APPROX 2050 BY TRANSLATOR AND FOUND PATIENT AGITATED AT DOOR OF ROOM STATING "GET OUT OF MY ROOM BASTARDS", I TRIED TO ORIENT PATIENT TO PLACE BUT HE WAS UNABLE TO HEAR ME R/T HEARING LOSS. PATIENT THEN BECAME COMBATIVE GRABBING THIS NURSES ARM AND ATTEMPTING TO PUSH ME OUT OF ROOM. CALLED FOR OTHER STAFF TO HELP AND WAS ABLE TO GET PATIENT BACK INTO BED. PATIENT COMBATIVE WITH STAFF ATTEMPTING TO GET HIM BACK IN BED. SPOKE TO STAFF MECHANICAL ENGINEER HOSPITALIST AND RECEIVED ORDER FOR ANDRESSA VEST. ANDRESSA VEST PLACED ON PATIENT AT APPROX 2100. WITNESSED PATIENT SITTING UP LEANED OVER SIDE OF BED AND UNTYING ANDRESSA VEST RESTRAINT. WHILE TRYING TO RETIE ANDRESSA THE PATIENT KICKED ME IN THE RIGHT FLANK AND WAS ABLE TO GRAB THE PONYTAIL OF THE TRANSLATOR. THE PATIENT TWISTED THE NURSING ASSISTANTS HEAD AROUND WHILE PULLING HER PONYTAIL TOWARD HIM. WE WERE ABLE TO GET HER HER OUT OF HIS ASSISTANT FARM OPERATIONS MANAGER AND RETIE ANDRESSA VEST IN A MORE SECURE WAY. PATIENT THEN GRABBED TABLE FAN FROM BEDSIDE TABLE AND RIPPED THE COVER OFF. HE THEN THREW THE FAN COVER ACROSS THE ROOM. I WAS ABLE TO GET THE REST OF THE PIECES OF THE FAN FROM THE PATIENT AND REMOVE ANY OTHER ITEMS THAT COULD POSSIBLY BE USED A WEAPON. PATIENT CURSING AND CONTINUES TO BE COMBATIVE. PATIENT GRABBED ON TO HEATING PAD MACHINE AND ATTEMPTED TO THROW IT BUT WAS UNABLE. ALL ITEMS WERE THEN REMOVED AND A SHEET PLACED OVER PATIENT. PATIENT NOW LAYING IN BED WITH ANDRESSA VEST IN PLACE. MEDICATIONS ORDERED. WILL CONTINUE TO MONITOR.
--- NOTE | 2019-01-20 04:58 | NUR ---
ATTEMPTED TO STRAIGHT CATH PATIENT BUT PATIENT STATED THAT I NEEDED TO GET OUT OF HIS HOUSE. PATIENT AGITATED AND COMBATIVE. UNABLE TO STRAIGHT CATH PATIENT AT THIS TIME.
--- NOTE | 2019-01-20 06:03 | NUR ---
ASSUMED CARE OF PT. RECEIVED REPORT FROM JOHN RAZA. PT. RESTING QUIETLY IN BED, NO APPARENT DISTRESS NOTED. ANDRESSA VEST RESTRAINT IN PLACE. DENIES NEEDS AT THIS TIME. CALL LIGHT WITHIN REACH, SIDE RAILS UP X2, AND BED ALARM ON. WILL CONT TO MONITOR.
--- NOTE | 2019-01-20 06:17 | NUR ---
SHIFT SUMMARY PATIENT COMBATIVE AND AGITATED THROUGHOUT TRUST EVALUATION SUPERVISOR. ANDRESSA VEST PLACED. PATIENT MOVED TO ROOM 351. REPORT GIVEN TO LIUDMILA RAZA. ALL PATIENT BELONGINGS TAKEN TO ROOM WITH PATIENT.
--- NOTE | 2019-01-20 10:33 | NUR ---
Clinical Visit: Pt is demented, he has just been taken out of restraints. He has been hallucinating and upset that he was "tied up by my granddaughter." Pt not symptomatic at this time. VAMSI. Spoke with and daughter. expresses wish to go home as soon as possible. She would like to have pt discharged back to hospice today with oral antibiotics. She states that she understands that she needs to call hospice services for all concerns. Reiterated that the goal is to stay home and not return to hospital. and daughter both verbalize understanding. They state that the reason that pt was brought back to the hospital was because hospice didn't know what to do with his fever and infection. They would rather manage his care at home at this point and ask to be discharged. Spoke with Dr. Telles and updated on wishes to go home. She will place discharge order. Spoke with Janice, hospice liason. She agrees to go talk with pt's family to discuss goals. Concern is that family will again call EMS. Discussed option of placement at rehab for hospice/[facility]. reports that she is willing and able to provide care, however, pt is very difficult to redirect at baseline. has support of daughter, who lives locally. Will remain available.
[2019-01-20] MEDS ORDERED: XARELTO20 MG PO (11:35)
[2019-01-20] MEDS ORDERED: Florastor250 MG PO (11:35)
[2019-01-20] MEDS ORDERED: LEVOFLOXACIN750 MG PO (11:36)
--- NOTE | 2019-01-20 14:48 | NUR ---
I met with pt's at bedside. She appears stoic and reports that she is ready to take pt home with hospice services again. In fact, she is ready to leave [facility]. She feels well-supported by her dtr and denied concerns. When asked how she is doing with losing her beloved of many years, she shrugs and tells me "We all don't we? Everyone should understand this." Family is non-gnosticist, but I affirmed Shruthi's strength/stamina and seems smiled with this. The hope is for pt to return home this afternoon.
--- NOTE | 2019-01-20 15:26 | NUR ---
DISCHARGE: PATIENT APPEARED TO BE PAIN FREE THROUGHOUT SHIFT. DURING THE MORNING, PATIENT YELLING OUT "HELP, I AM TIED TO MY BED". PATIENT CALMED IMMEDIATELY ONCE STAFF ENTERED THE ROOM AND PROVIDED REASSURANCE TO THE PATIENT. PATIENT'S IN THE ROOM FOR MUCH OF THE DAY. PATIENT REASSURED BY HER PRESENCE. REQUESTED THAT THE PATIENT BE DISCHARGED TODAY. NOTIFIED THE MD. PER MD ORDERS, PATIENT TO DISCHARGE TODAY BACK TO HOSPICE AT HOME. NOTIFIED. IN COMMUNICATION WITH [facility]. DISCHARGE SET FOR 1500 TODAY. PATIENT CONFUSED THROUGHOUT THE SHIFT. PATIENT CALM AND COOPERATIVE MOST OF THE MORNING. RESTRAINTS DISCONTINUED THIS MORNING. PATIENT SHOWED NO AGGRESSION OR COMBATIVENESS TOWARDS THE STAFF. PATIENT STEADY ON FEET WITH [facility]. PATIENT HAD AN ELEVATED BP THIS MORNING WHEN PATIENT WAS AGITATED AND YELLING OUT. RESOLVED ONCE THE PATIENT WAS CALM. PATIENT DISCHARGED WITH [facility] IN WHEELCHAIR WITH AT SIDE. PATIENT STABLE AT TIME OF DISCHARGE. [facility]. DISCHARGE EDUCATION AND INSTRUCTIONS PROVIDED TO THE PATIENT'S . ALL QUESTIONS AND CONCERNS ADDRESSED.
== END 2019-01-20 15:19 | disposition hospice, home (50) | DRG 871 ==
LOC: ER 06:56 → MEDS 11:50
PROVIDERS: Emergency Medicine; ADMIT Internal Medicine
DX: A41.50 Gram-negative sepsis, unspecified (principal); I26.99 Other pulmonary embolism without acute cor pulmonale; I48.20 Chronic atrial fibrillation, unspecified; J84.9 Interstitial pulmonary disease, unspecified; N39.0 Urinary tract infection, site not specified; I42.1 Obstructive hypertrophic cardiomyopathy; R65.20 Severe sepsis without septic shock; E11.9 Type 2 diabetes mellitus without complications; K21.9 Gastro-esophageal reflux disease without esophagitis; I10 Essential (primary) hypertension; R91.8 Other nonspecific abnormal finding of lung field; N40.1 Benign prostatic hyperplasia with lower urinary tract symptoms; R33.8 Other retention of urine; Z66 Do not resuscitate; Z51.5 Encounter for palliative care; Z88.5 Allergy status to narcotic agent; Z88.6 Allergy status to analgesic agent; Z88.0 Allergy status to penicillin; Z79.02 Long term (current) use of antithrombotics/antiplatelets; Z79.4 Long term (current) use of insulin; Z79.899 Other long term (current) drug therapy
CPT/HCPCS: 36415; 51701; 51702; 71045; 80053; 81001; 82947; 83605; 85025; 85610; 85730; 87040; 87077; 87086; 87186; 93005; 93010; 96365-59; 96366-59; 96367-59; 99285-25; A9270; C9113; J0456; J0696; J1630; J1956; J7030; J7040; J7050; J7120